=== PATIENT | female | born 1995 | race Caucasian/White ===

== ENCOUNTER 2023-10-16 06:06 | Emergency (ER) | payer OTHER, SELFPAY ==
[2023-10-16 06:11] VITALS: BP 126/97; PULSE 98; RESP 18; TEMP 37.3; O2SAT 99
[2023-10-16 06:23] VITALS: BP 126/97; PULSE 109; TEMP 37.3; O2SAT 100
[2023-10-16 07:05] LABS: Basophils Absolute Auto 0.1 K/mm3 (0.0-0.1); Basophils Percent Auto 0.5 % (0.2-1.2); Eosinophils Absolute Auto 0.1 K/mm3 (0-0.3); Eosinophils Percent Auto 0.8 % (0-4.4); Hematocrit 43.1 % (37.0-47.0); Hemoglobin 14.5 g/dL (12.0-15.0); Immature Granulocyte Absolute 0.03 K/mm3 (0.00-0.031); Immature Granulocyte Percent A 0.3 % (0-0.5); Lymphocytes Absolute Auto 1.73 K/mm3 (0.9-3.2); Lymphocytes Percent Auto 17.7 % (18.3-44.2); Mean Corpuscular HGB Conc 33.6 g/dl (32-36); Mean Corpuscular Hemoglobin 30.9 pg (26-34); Mean Corpuscular Volume 91.7 fl (80-100); Mean Platelet Volume 11.9 fl (7.4-10.4); Monocytes Absolute Auto 0.5 K/mm3 (0.1-0.6); Monocytes Percent Auto 5.5 % (2.6-8.5); Neutrophils Absolute Auto 7.3 K/mm3 (1.3-6.7); Neutrophils Percent Auto 75.2 % (45.5-73.1); Platelet Count Result 260 k/mm3 (150-375); Red Cell Distribution Width 12.9 % (11.5-14.5); White Blood Count 9.8 K/mm3 (4.5-10.0)
[2023-10-16 07:16] LABS: Alanine Aminotransferase 16 U/L (6-35); Alkaline Phosphatase 53 U/L (38-126); Anion Gap 12 mmol/L (8-16); Aspartate Amino Transferase 21 U/L (14-36); Bilirubin,Total 0.9 mg/dL (0.2-1.3); Blood Urea Nitrogen 13 mg/dL (7-17); Calcium 9.9 mg/dL (8.4-10.2); Carbon Dioxide 21 mmol/L (22-30); Chloride 109 mmol/L (98-107); Estimated CRCL calculation 90 ml/min; Estimated Glomerular Filt Rate > 60; Glucose 120 mg/dL (65-110); Potassium 3.6 mmol/L (3.4-5.0); Sodium 142 mmol/L (137-145)
[2023-10-16 07:17] LABS: Ethanol < 10 mg/dL (<10)
[2023-10-16 07:18] LABS: Acetaminophen < 10 ug/mL (10-30); Salicylate < 1.0 mg/dL (2-20)
[2023-10-16 07:20] VITALS: BP 149/97; PULSE 103; RESP 20; O2SAT 100
[2023-10-16 07:31] LABS: Appearance Urine Turbid (Clear); Bacteria Urine 3+ /hpf; Bilirubin Urine 2+ (Negative); Blood Urine 2+ (Negative); Calcium Oxalate Crystals Urine Present /hpf; Color Urine Dark Yellow (Yellow); Glucose Urine UA Negative (Negative); Ketones Urine 4+ mg/dL (Negative); Leukocyte Esterase Ur Trace LEU/UL (Negative); Nitrate Urine Negative (Negative); Non Pathogenic Casts 0-2; Protein Urine 2+ mg/dL (Negative); RBC Urine 21-50 /hpf (0-2); Squamous Epithelial Cell Urine Few /hpf (Few); WBC Urine 21-50 /hpf
[2023-10-16 07:32] LABS: Add Urine Microscopic? YES; Amphetamine Screen Urine Negative (Negative); Barbiturate Screen Urine Negative (Negative); Benzodiazepines Screen Urine Negative (Negative); Cannabinoid Screen Urine Positive (Negative); Cocaine Screen Urine Negative (Negative); Methadone Screen Urine Negative (Negative); Opiate Screen Urine Negative (Negative); Phencyclidine Screen Urine Negative (Negative); Specific Grav Ur 1.041 (1.001-1.035)
[2023-10-16] MEDS: SODIUM CHLORIDE 0.9% IV 1,000 ML 999 ML IV CONT (07:51)
--- NOTE | 2023-10-16 07:55 | PC.NURSE ---
called dietary and ordered a breakfast tray for pt at this time
[2023-10-16 09:24] VITALS: BP 133/88; PULSE 99; RESP 20; O2SAT 99
[2023-10-16] MEDS: LORazepam INJ (*CRX) 2 MG/ML VIAL 0.5 MG IV PUSH (10:00)
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
[2023-10-16 11:05] LABS: Influenza A QL RT-PCR Negative (Negative); Influenza B QL RT-PCR Negative (Negative); RSV RNA, RT-PCR Negative (Negative); SARS-CoV-2 RNA PCR Negative (Negative)
--- NOTE | 2023-10-16 12:18 | PC.NURSE ---
called dietary and ordered a lunch tray for pt at this time
--- NOTE | 2023-10-16 12:57 | PC.NURSE ---
Call received from [facility] in [place], declining pt admit due to no insurance and in patient would cost aprox 1500/day out of pocket pay.
[2023-10-16 13:03] VITALS: BP 122/86; PULSE 108; RESP 20; O2SAT 100
--- NOTE | 2023-10-16 13:36 | PC.NURSE ---
Records re-faxed to [facility] at this time as requested due to incomplete labs. [facility] [employer]
--- NOTE | 2023-10-16 16:02 | PC.NURSE ---
records faxed to [facility] at [phone] at this time records faxed to [facility] at [phone] at this time
--- NOTE | 2023-10-16 16:13 | PC.NURSE ---
[facility] called to notify will not accept pt at this time due to no bed available.
--- NOTE | 2023-10-16 17:04 | PC.NURSE ---
called dietary and ordered a dinner tray for pt at this time
--- NOTE | 2023-10-16 17:05 | PC.NURSE ---
spoke w/ hSeri Parr at this time and provided pt history as requested, fax re sent w/ updated doc notes and labs
[2023-10-16 17:07] VITALS: BP 116/74; PULSE 86; RESP 15; O2SAT 98
--- NOTE | 2023-10-16 17:16 | PC.NURSE ---
[facility] calling and requesting EDP note stating pt is medically clear to be faxed as well as neg COVID results. Faxed as requested at this time.
[2023-10-16] MEDS: CEPHALEXIN 500 MG CAPSULE PO (17:22)
--- NOTE | 2023-10-16 17:54 | PC.NURSE ---
Pt accepted to [facility] (per Karolyn who will call back w/ a pt bed assignment and number to give report), Accepting doctor is Dr Owens. EDP Dr Valentin made aware. Pt also made aware and signed consent for transfer.
--- NOTE | 2023-10-16 18:06 | PC.NURSE ---
attempted to call Paola at [facility] ([facility]) to give report, per Paola - requesting to call me back in aprox 10 mins to get report Number for [facility]/report at [facility]: [phone]
== END 2023-10-16 19:45 ==
PROVIDERS: Student in an Organized Health Care Education/Training Program; Emergency Provider Emergency Medicine
DX: F22 Delusional disorders (principal); N39.0 Urinary tract infection, site not specified; Z79.51 Long term (current) use of inhaled steroids; F12.90 Cannabis use, unspecified, uncomplicated; Z11.52 Encounter for screening for COVID-19
CPT/HCPCS: 36415; 80053; 80307; 81001; 81025; 84443; 85025; 87086; 87088; 87637; 96361; 96374; 99284; 99285; A9270; J2060; J7030